=== PATIENT | male | born 1980 | race Caucasian/White ===

== ENCOUNTER 2020-04-17 17:50 | Emergency (ER) | payer OTHER, SELFPAY ==
[2020-04-17 17:56] VITALS: BP 141/95; PULSE 126; RESP 24; TEMP 36.7; O2SAT 97
--- NOTE | 2020-04-17 18:14 | ED.ALLEREA ---
HPI - Allergic Reaction General Chief complaint: Allergic Reaction Stated complaint: allergic rxn wasp sting Time Seen by Provider: 04/17/20 17:59 Source: patient Mode of arrival: ambulatory Limitations: no limitations History of Present Illness HPI narrative: 39-year-old male No significant past medical history Says 3 wasp stung him about an hour ago, 1 on each ankle and one on his left wrist, while he was doing some yard work He said he was outside cutting wood for about 4 hours went inside for a cool down and then this happened when he went back outside He took 2 Benadryl at home He complaints of localized swelling at the sites, felt like he was breathing fast, and his face felt tingly There is no stridor no hoarseness and no wheezing No urticaria or oral or facial swelling MD complaint: allergic reaction Onset (ago): hour(s) Exposure: insect bite Symptoms: itching Treatment prior to arrival: benadryl Related Data Allergies Allergy/AdvReac Type Severity Reaction Status Date / Time No Known Allergies Allergy Verified 04/17/20 18:13 Review of Systems Review of Systems: All systems reviewed & are unremarkable except as noted in HPI and below Eyes: Eyes: Reports no additional eye complaints ENT: Denies nasal congestion and Denies sore throat Cardiovascular: Cardiovascular: Denies chest pain and Reports rapid heart rate Respiratory: Respiratory: Denies cough and Denies wheezing Gastrointestinal: Gastrointestinal: Denies diarrhea and Denies vomiting Musculoskeletal: Musculoskeletal: Denies joint swelling Integumentary/Breasts: Skin/Breast: Reports rash Neurologic: Denies headache(s) and Denies focal weakness Allergic/Immunologic: Allergic/Immunologic: Denies lip swelling, Denies throat swelling, Denies tongue swelling and Denies wheezing Exam Const: General: healthy appearing, no acute distress and well developed Nutritional Appearance: well nourished Orientation/consciousness: patient oriented x3 (alert) and Other orientation findings (Alert) Limitations: no limitations HENMT: Head: normocephalic and atraumatic Ears: external ears normal General nose exam: No nasal discharge present Face and sinus: face symmetric Mouth: Yes lip normal, Yes tongue normal and Yes moist mucous membranes Throat: other (No exudate, no erythema) Other: No swelling Eyes: Conjunctivae: conjunctivae normal Sclera: sclerae normal EOM: EOMs intact bilaterally Neck: Neck: full ROM, no lymphadenopathy and supple Thyroid: thyroid normal Other: No stridor no hoarseness Chest: Chest palpation & inspection: no tenderness Resp: Effort & Inspection: normal respiratory effort, not labored and not tachypneic Auscultation: clear to auscultation bilaterally, no rales, no rhonchi, no wheezes and other (breath sounds equal) Cardio: Rate: regular rate and tachycardic Rhythm: regular rhythm Heart sounds: no gallops and no murmurs GI: GI Palp: No abdominal tenderness, Yes Soft to palpation and No Tenderness to palpation present (GI) Auscultation: other (bowel sounds present) Back/Spine/Pelvis: Thoracic/Lumbar Spine: thoracic and lumbar spine normal to inspection Skin: General skin exam: no rashes or lesions noted Wounds: no wounds Other: Cannot easily discern the sites of the bite There may be some slight swelling at the left wrist and the right ankle I cannot see anything on the left ankle No urticaria Neuro: General: patient oriented x3 (alert), moves all extremities and no focal motor deficits Cranial nerves: Yes facial symmetry Speech: normal speech Motor exam (neuro): Motor abnormalities not present Extrem: General: normal to inspection, full ROM and no pedal edema Psych: Affect: normal affect Course Course Emergency Course: improved after meds, no worsening while obs'ed Vital Signs Vital signs: Vital Signs Temperature 36.7 C 04/17/20 17:56 Pulse Rate 126 H 04/17/20 17:56 Respiratory Rate 24 H 07
[2020-04-17] MEDS: LACTATED RINGERS 1,000 ML 999 ML IV CONT ×2 (18:25→18:26)
[2020-04-17] MEDS: FAMOTIDINE 20 MG/2 ML VIAL 40 MG IV PUSH (18:26)
[2020-04-17 19:52] VITALS: BP 124/81; PULSE 85; RESP 20; O2SAT 98
[2020-04-17 20:18] VITALS: BP 125/76; PULSE 86; RESP 20; O2SAT 99
[2020-04-17 21:14] VITALS: BP 128/77; PULSE 86; RESP 20; O2SAT 99
[2020-04-17 22:23] VITALS: BP 127/90; PULSE 90; RESP 20; O2SAT 99
== END 2020-04-17 22:25 | disposition home or self-care (01) ==
PROVIDERS: Emergency Provider Emergency Medicine
DX: T63.461A Toxic effect of venom of wasps, accidental (unintentional), initial encounter (principal)
CPT/HCPCS: 96361; 96374; 96375; 99284; J1100; J7120